=== PATIENT | male | born 1970 | race Caucasian/White ===

== ENCOUNTER 2021-01-10 13:59 | Emergency (ER) | payer OTHER ==
[~2021-01-10] VITALS: Ht 172.7 cm; Wt 104.4 kg
[2021-01-10 14:10] VITALS: BP 172/107
[2021-01-10] MEDS ORDERED: LIDOCAINE MPF 1% 10 MG/ML VIAL INJ ONE (14:30)
[2021-01-10] MEDS ORDERED: KETOROLAC 30 MG/ML VIAL IM ONE (14:30)
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
--- NOTE | 2021-01-10 14:49 | NUR ---
SREE [facility]ASE AT BEDSIDE DOING I/D
[2021-01-10] MEDS ORDERED: SULF-59 PO (15:02)
[2021-01-10] MEDS ORDERED: NAPR-54 PO (15:02)
[2021-01-10] MEDS ORDERED: CEPH-588 PO (15:02)
--- NOTE | 2021-01-10 15:08 | NUR ---
Patient discharged with v/s stable. Written and verbal after care instructions ABOUT SKIN ABSCESS given and explained. Patient alert, oriented and verbalized understanding of instructions. Ambulatory with steady gait. All questions addressed prior to discharge. ID band removed. Patient advised to follow up with PMD. Rx of KEFLEX, NAPROXEN, AND BACTRIM DS TAB given. Patient educated on indication of medication including possible reaction and side effects. Opportunity to ask questions provided and answered.
== END 2021-01-10 15:08 | disposition home or self-care (01) ==
LOC: MED 13:59
DX: L02.511 Cutaneous abscess of right hand (principal); Z79.899 Other long term (current) drug therapy
CPT/HCPCS: 26010; 96372; 99283; J1885; J2001

== ENCOUNTER 2022-05-15 12:39 | Emergency (ER) | payer SELFPAY ==
[~2022-05-15] VITALS: Ht 170.2 cm; Wt 97.5 kg
[~2022-05-15 12:39] MED LIST: CEPH-588 PO; NAPR-54 PO; SULF-59 PO
[2022-05-15 12:51] VITALS: BP 156/92
--- NOTE | 2022-05-15 12:58 | NUR ---
PT AMBULATED TO LOBBY
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
--- NOTE | 2022-05-15 13:25 | NUR ---
Patient discharged with v/s stable. Written and verbal after care instructions given and explained. Patient verbalized understanding. Ambulatory with steady gait. All questions addressed prior to discharge. Advised to follow up with PMD.
== END 2022-05-15 13:25 | disposition home or self-care (01) ==
LOC: MED 12:39
DX: S09.90XD Unspecified injury of head, subsequent encounter (principal); Z48.02 Encounter for removal of sutures; X58.XXXD Exposure to other specified factors, subsequent encounter
CPT/HCPCS: 99281

== ENCOUNTER 2022-08-19 02:55 | Emergency (ER) | payer MEDICAID ==
[~2022-08-19] VITALS: Ht 170.2 cm; Wt 104.3 kg
[2022-08-19 03:05] VITALS: BP 143/82
--- NOTE | 2022-08-19 03:08 | NUR ---
TO LOBBY A/W BED AMBULATORY
[2022-08-19] MEDS ORDERED: ACETAMINOPHEN 325 MG TAB PO ONE (05:00)
[2022-08-19] MEDS ORDERED: IBUP-2213 PO (06:11)
[2022-08-19] MEDS ORDERED: ACET-10509 PO (06:11)
[2022-08-19 06:16] VITALS: BP 143/82
--- NOTE | 2022-08-19 06:16 | NUR ---
Patient discharged with v/s stable. Written and verbal after care instructions given and explained. Patient alert, oriented and verbalized understanding of instructions. Ambulatory with steady gait. All questions addressed prior to discharge. ID band removed. Patient advised to follow up with PMD. Rx of TYLENOL AND IBUPROFEN given. Patient educated on indication of medication including possible reaction and side effects. Opportunity to ask questions provided and answered.
== END 2022-08-19 06:16 | disposition home or self-care (01) ==
LOC: MED 02:55
DX: S00.03XA Contusion of scalp, initial encounter (principal); Z79.1 Long term (current) use of non-steroidal anti-inflammatories (NSAID); Z79.2 Long term (current) use of antibiotics; W01.198A Fall on same level from slipping, tripping and stumbling with subsequent striking against other object, initial encounter; Y92.89 Other specified places as the place of occurrence of the external cause; Y93.89 Activity, other specified; Y99.8 Other external cause status
CPT/HCPCS: 70450; 99284